=== PATIENT | male | born 1980 | race American Indian/Alaskan Native ===

== ENCOUNTER 2017-04-29 10:21 | Emergency (ER) | payer OTHER ==
[2017-04-29] MEDS ORDERED: BOOSTRIX IM ONE (10:52)
[2017-04-29] MEDS ORDERED: MARCAINE 0.5% INFILTRATI ONE ×2 (10:53→11:03)
[2017-04-29] MEDS ORDERED: XYLOCAINE 1% 20 mL ONE (10:54)
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
[2017-04-29] MEDS ORDERED: NACL 0.9% 500 ML IR ONE (10:59)
[2017-04-29] MEDS ORDERED: NACL 0.9% IR ONE (11:02)
[2017-04-29] MEDS ORDERED: XYLOCAINE 1% 20 mL INFILTRATI ONE (11:04)
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
[2017-04-29] MEDS ORDERED: ANCEF IM ONE (12:37)
[2017-04-29] MEDS ORDERED: WATER FOR INJ (PF) 10 ML ONE (12:57)
[2017-04-29 13:38] VITALS: BP 154/93
[2017-04-29] MEDS ORDERED: ANTIBIOTIC OINT TP ONE (14:00)
== END 2017-04-29 13:37 | disposition home or self-care (01) ==
LOC: ED 10:21
DX: S01.312A Laceration without foreign body of left ear, initial encounter (principal); Z87.891 Personal history of nicotine dependence; F07.81 Postconcussional syndrome; V89.2XXA Person injured in unspecified motor-vehicle accident, traffic, initial encounter; Y93.89 Activity, other specified; Y92.89 Other specified places as the place of occurrence of the external cause; Y99.8 Other external cause status
CPT/HCPCS: 12011; 70450; 72125; 90471; 90715; 96372; 99284; J0690